=== PATIENT | male | born 1960 | race Caucasian/White ===

== ENCOUNTER 2019-04-15 17:18 | Emergency (ER) | payer BC ==
[~2019-04-15] VITALS: Ht 182.9 cm; Wt 122.5 kg
[2019-04-15] MEDS ORDERED: [UNRECOGNIZED DRUG - OTHER] (17:47)
[2019-04-15] MEDS ORDERED: CRESTOR10 MG PO (17:47)
[2019-04-15 18:20] VITALS: BP 122/87
== END 2019-04-15 18:21 | disposition home or self-care (01) ==
LOC: M.ERS 17:18
DX: F41.0 Panic disorder [episodic paroxysmal anxiety] (principal); L40.9 Psoriasis, unspecified